=== PATIENT | female | born 1940 | race Caucasian/White ===

== ENCOUNTER 2016-09-18 13:57 | Outpatient (CLI) | payer MEDICARE, OTHER | END 2016-09-18 13:58 | disposition home or self-care (01) | DX: M19.071 Primary osteoarthritis, right ankle and foot (principal); M20.5X1 Other deformities of toe(s) (acquired), right foot ==

== ENCOUNTER 2019-07-23 11:00 | Outpatient (CLI) | payer MEDICARE, OTHER | END 2019-07-23 23:59 | disposition home or self-care (01) | LOC: LAB.R 11:00 | PROVIDERS: ATTEND Physician Assistant Medical | DX: N39.0 Urinary tract infection, site not specified (principal) | CPT/HCPCS: 87086 ==

== ENCOUNTER 2019-09-24 14:04 | Outpatient (CLI) | payer MEDICARE, OTHER ==
--- NOTE | 2019-09-25 04:12 | XRAY Report ---
Reason: RIGHT ANKLE PAIN Procedure Date: 09/24/2019 Accession Number: [id number] / [id number] Procedure: WCP - Ankle 2 View RT CPT Code: Final Report FULL RESULT: EXAM: RIGHT ANKLE RADIOGRAPHY EXAM DATE: 09/24/2019 02:04 PM. CLINICAL HISTORY: RIGHT ANKLE PAIN. COMPARISON: None. TECHNIQUE: 2 views. FINDINGS: Medial malleolar soft tissue swelling is seen. The osseous structures are intact and well aligned. The bone mineralization is normal. IMPRESSION: Medial malleolar soft tissue swelling without evidence of acute fracture or dislocation. [facility]
== END 2019-09-24 23:59 | disposition home or self-care (01) ==
LOC: DI.WCP 14:04
PROVIDERS: ATTEND Physician Assistant Medical
DX: M25.571 Pain in right ankle and joints of right foot (principal); R22.41 Localized swelling, mass and lump, right lower limb

== ENCOUNTER 2019-12-30 07:58 | Outpatient (CLI) | payer MEDICARE, OTHER ==
--- NOTE | 2019-12-30 12:24 | MRI Report ---
Reason: CHR PAIN, RT INSTEP W/JOINT EFFUSION Procedure Date: 12/30/2019 Accession Number: [id number] / [id number] Procedure: MRI - Ankle RT W/O CPT Code: Final Report FULL RESULT: EXAM: RIGHT ANKLE/HINDFOOT MRI WITHOUT CONTRAST EXAM DATE: 12/30/2019 09:17 AM. CLINICAL HISTORY: Chronic pain, right instep with joint effusion. Walking up the stairs in September she felt something tear at the ankle. Pain along medial ankle with swelling. COMPARISON: ANKLE 2 VIEW RT 09/24/2019 1:33 PM. TECHNIQUE: Multiplanar, multisequence T1-weighted and fluid-sensitive sequences of the ankle/hindfoot without contrast. Other: None. FINDINGS: Bones: Mild edema proximal shaft fifth metatarsal. Subcortical marrow edema or cystic degenerative changes plantar aspect base fourth metatarsal. Moderate arthrosis third cuneiform cuboid articulation. Articular Cartilage: Moderate arthrosis tarsometatarsal articulations without subluxation. Mild arthrosis talonavicular and navicular cuneiform articulations. Ligaments: Attenuation anterior talofibular ligament. Calcaneofibular ligament is intact. The deep and superficial deltoid and spring ligaments are intact. Anterior Tendons: The tibialis anterior, extensor hallucis longus, and extensor digitorum longus tendons are unremarkable. Medial Tendons: Grade 2 tear proximal posterior tibialis tendon. Complete or near complete tear posterior tibialis tendon 5.5 cm in length. Grade 2 tear distal posterior tibialis tendon at the tendon insertion. Flexor digitorum longus and flexor hallucis longus tendons are intact. Mild flexor tenosynovitis. Lateral Tendons: Mild tenosynovitis peroneal tendons. Achilles Tendon: The Achilles tendon is unremarkable. Musculature: No edema or fatty atrophy. Other: No effusions. The contents of the sinus tarsi and tarsal tunnel are unremarkable. No plantar fasciitis. Dorsum midfoot subcutaneous edema. IMPRESSION: Complete or near complete tear posterior tibialis tendon 5.5 cm in length with tendon retraction. [facility]
== END 2019-12-30 07:59 | disposition home or self-care (01) ==
LOC: DI 07:58
PROVIDERS: ATTEND Podiatrist
DX: S96.811A Strain of other specified muscles and tendons at ankle and foot level, right foot, initial encounter (principal); M19.071 Primary osteoarthritis, right ankle and foot; M65.871 Other synovitis and tenosynovitis, right ankle and foot

== ENCOUNTER 2020-11-30 15:16 | Outpatient (CLI) | payer MEDICARE, OTHER ==
[2020-11-30 18:17] LABS: BASOPHILS # (AUTO) 0.1 10^3/uL (0.0-0.1); BASOPHILS % (AUTO) 0.7 %; EOSINOPHILS # (AUTO) 0.3 10^3/uL (0.0-0.7); EOSINOPHILS % (AUTO) 2.6 %; HCT - HEMATOCRIT 46.5 % (37.0-47.0); HGB - HEMOGLOBIN 14.3 g/dL (12.0-16.0); LYMPHOCYTES # (AUTO) 3.4 10^3/uL (1.5-3.5); MEAN CORPUSCULAR HEMOGLOBIN 27.9 pg (27.0-31.0); MEAN CORPUSCULAR HGB CONC 30.8 g/dL (32.0-36.0); MEAN CORPUSCULAR VOLUME 90.8 fL (81.0-99.0); MEAN PLATELET VOLUME 10.4 fL (7.9-10.8); MONOCYTES # (AUTO) 0.6 10^3/uL (0.0-1.0); MONOCYTES % (AUTO) 6.6 %; NEUTROPHILS # (AUTO) 5.3 10^3/uL (1.5-6.6); NEUTROPHILS % (AUTO) 54.5 %; PLT - PLATELET COUNT 235 10^3/uL (130-450); RED BLOOD COUNT 5.12 10^6/uL (4.20-5.40); RED CELL DISTRIBUTION WIDTH 13.2 % (12.0-15.0); WHITE BLOOD COUNT 9.7 x10^3/uL (4.8-10.8)
[2020-11-30 18:40] LABS: ALBUMIN 4.2 g/dL (3.2-5.5); ALBUMIN/GLOBULIN RATIO 1.4 (1.0-2.2); BILIRUBIN,TOTAL 0.5 mg/dL (0.2-1.0); CALCIUM 9.1 mg/dL (8.5-10.3); CREATININE 0.8 mg/dL (0.4-1.0); MAGNESIUM 2.5 mg/dL (1.7-2.8); PHOSPHORUS 3.3 mg/dL (2.5-4.6); POTASSIUM 4.3 mmol/L (3.5-5.0); TOTAL PROTEIN 7.3 g/dL (6.7-8.2)
== END 2020-11-30 23:59 | disposition home or self-care (01) ==
LOC: LAB.WCP 15:16
PROVIDERS: ATTEND Physician Assistant Medical
DX: R00.2 Palpitations (principal)
CPT/HCPCS: 36415; 80053; 83735; 84100; 85025

== ENCOUNTER 2023-02-04 13:39 | Outpatient (CLI) | payer MEDICARE, OTHER ==
--- NOTE | 2023-02-04 17:42 | XRAY Report ---
PROCEDURE: Chest 2 View X-Ray INDICATIONS: Shortness of breath TECHNIQUE: 2 views of the chest were acquired. COMPARISON: Chest radiographs 06/10/2014 FINDINGS: Surgical changes and devices: None. Lungs and pleura: No pleural effusions or pneumothorax. Lungs are clear. Mediastinum: Cardiac silhouette is at the upper limits of normal in size. Mediastinal and hilar cont ours are similar to before. Bones and chest wall: No suspicious bony lesions. Overlying soft tissues appear unremarkable. IMPRESSION: No acute cardiopulmonary process. Reviewed by: Porfirio Covarrubias MD on 02/04/2023 5:40 PM PDT Approved by: Porfirio Covarrubias MD on 02/04/2023 5:40 PM PDT Station ID: [id number]
== END 2023-02-04 13:40 | disposition home or self-care (01) ==
LOC: DI 13:39
PROVIDERS: ATTEND Nurse Practitioner
DX: I47.1 Supraventricular tachycardia (principal); I10 Essential (primary) hypertension; I25.10 Atherosclerotic heart disease of native coronary artery without angina pectoris

== ENCOUNTER 2023-03-25 17:00 | Outpatient (CLI) | payer MEDICARE, OTHER ==
[2023-03-25 21:04] LABS: BILIRUBIN,URINE NEGATIVE (NEGATIVE); CLARITY,URINE HAZY (CLEAR); GLUCOSE, URINE (UA) NEGATIVE (NEGATIVE); KETONES,URINE (UA) NEGATIVE (NEGATIVE); LEUKOCYTE ESTERASE, URINE MODERATE (NEGATIVE); NITRITE,URINE NEGATIVE (NEGATIVE); OCCULT BLOOD,URINE LARGE (NEGATIVE); PROTEIN,URINE TRACE mg/dL (NEGATIVE); UROBILINOGEN,URINE 0.2 (NORMAL) E.U./dL (NORMAL)
[2023-03-25 21:15] LABS: BACTERIA,URINE Moderate /HPF (None Seen); SQUAMOUS EPITHELIAL CELL,UR NONE SEEN (<= Few); WBC,URINE >25 /HPF (0-5)
== END 2023-03-25 17:15 | disposition home or self-care (01) ==
LOC: LAB.N 17:00
PROVIDERS: ATTEND Emergency Medicine
DX: R30.0 Dysuria (principal)
CPT/HCPCS: 81001; 87086; 87181

== ENCOUNTER 2023-06-08 09:07 | Outpatient (CLI) | payer MEDICARE, OTHER ==
[2023-06-08 18:53] LABS: BASOPHILS # (AUTO) 0.1 10^3/uL (0.0-0.1); BASOPHILS % (AUTO) 0.7 %; EOSINOPHILS # (AUTO) 0.2 10^3/uL (0.0-0.7); EOSINOPHILS % (AUTO) 2.1 %; HCT - HEMATOCRIT 45.8 % (37.0-47.0); HGB - HEMOGLOBIN 13.8 g/dL (12.0-16.0); LYMPHOCYTES # (AUTO) 2.7 10^3/uL (1.5-3.5); LYMPHOCYTES % (AUTO) 30.7 %; MEAN CORPUSCULAR HGB CONC 30.1 g/dL (32.0-36.0); MEAN CORPUSCULAR VOLUME 92.9 fL (81.0-99.0); MONOCYTES # (AUTO) 0.6 10^3/uL (0.0-1.0); MONOCYTES % (AUTO) 7.1 %; NEUTROPHILS # (AUTO) 5.2 10^3/uL (1.5-6.6); NEUTROPHILS % (AUTO) 58.8 %; PLT - PLATELET COUNT 216 10^3/uL (130-450); RED BLOOD COUNT 4.93 10^6/uL (4.20-5.40); RED CELL DISTRIBUTION WIDTH 13.3 % (12.0-15.0); WHITE BLOOD COUNT 8.9 x10^3/uL (4.8-10.8)
[2023-06-08 19:15] LABS: ALBUMIN/GLOBULIN RATIO 1.4 (1.0-2.2); ALKALINE PHOSPHATASE 104 IU/L (42-121); ALT ALANINE AMINOTRANSFERASE 24 IU/L (10-60); AST ASPARTATE AMINOTRANSFERASE 19 IU/L (10-42); BILIRUBIN,TOTAL 0.4 mg/dL (0.2-1.0); BUN - BLOOD UREA NITROGEN 12 mg/dL (6-20); CALCIUM 9.4 mg/dL (8.5-10.3); CARBON DIOXIDE - CO2 29 mmol/L (21-32); CHLORIDE 104 mmol/L (101-111); CHOL/HDL RATIO 2.4 (<4.4); CHOLESTEROL 127 mg/dL; CREATININE 0.6 mg/dL (0.6-1.3); GFR - MDRD 96 (>89); GLUCOSE 132 mg/dL (74-104); HDL CHOLESTEROL 53 mg/dL; LDL CHOLESTEROL,CALCULATED 52 mg/dL; POTASSIUM 4.4 mmol/L (3.5-4.5); SODIUM 140 mmol/L (135-145); TOTAL PROTEIN 6.8 g/dL (6.4-8.9); TRIGLYCERIDES 112 mg/dL (48-352); VLDL CHOLESTEROL 22 mg/dL
[2023-06-08 19:27] LABS: THYROID STIMULATING HORMONE 2.89 uIU/mL (0.34-5.60)
[2023-06-09 10:24] LABS: ESTIMATED AVERAGE GLUCOSE 146 mg/dL (70-100); HEMOGLOBIN A1c% 6.7 % (4.27-6.07)
== END 2023-06-08 09:08 | disposition home or self-care (01) ==
LOC: LAB.N 09:07
PROVIDERS: ATTEND Physician Assistant Medical
DX: E11.9 Type 2 diabetes mellitus without complications (principal)
CPT/HCPCS: 36415; 80053; 80061; 83036; 83721; 84443; 85025